=== PATIENT | female | born 1950 | race Caucasian/White ===

== ENCOUNTER 2021-03-28 16:16 | Emergency (ER) | payer MEDICARE ==
[~2021-03-28] VITALS: Ht 157.5 cm; Wt 78.5 kg
--- NOTE | 2021-03-28 16:27 | NUR ---
The patient is [id number], from home, slipped and fall right hip pain, right hip looks like has outword rolation. Rates pain 10/10. Denies numbess/tingling in the extremity. In room air and denies SOB. Respiration regular and unlabored. Attached to the monitor.
--- NOTE | 2021-03-28 16:37 | NUR ---
[facility] [phone] [facility] [phone].
[2021-03-28] MEDS ORDERED: ONDANSETRON HCL/PF 4 MG/2 ML VIAL ONE (16:50)
[2021-03-28] MEDS ORDERED: MORPHINE SULFATE INJ 4 MG/ML DISP.SYRIN ONE ×3 (16:50→21:34)
[2021-03-28] MEDS ORDERED: ONDANSETRON HCL/PF 4 MG/2 ML VIAL IVP ONE (17:00)
[2021-03-28] MEDS ORDERED: MORPHINE SULFATE INJ 2 MG/ML DISP.SYRIN IV ONE ×3 (17:00→22:00)
[2021-03-28] MEDS ORDERED: IV NS 0.9% 1,000 ML BAG IV ONE (17:00)
[2021-03-28] MEDS ORDERED: METF-442 PO (17:07)
[2021-03-28] MEDS ORDERED: FURO40TA5 PO (17:07)
[2021-03-28] MEDS ORDERED: GABA-532 PO (17:07)
[2021-03-28] MEDS ORDERED: SEMA0.25 SQ (17:07)
[2021-03-28] MEDS ORDERED: LISI2.5T2 PO (17:07)
[2021-03-28] MEDS ORDERED: METO-357 MT (17:07)
[2021-03-28] MEDS ORDERED: ROSU20TA32 PO (17:07)
[2021-03-28] MEDS ORDERED: ASPI-1169 PO (17:07)
[2021-03-28] MEDS ORDERED: INSU100V7 SQ (17:07)
--- NOTE | 2021-03-28 17:11 | NUR ---
COVID SWAB DONE AND SENT TO THE LAB
--- NOTE | 2021-03-28 17:16 | NUR ---
CALLED NURSING SUP FOR M/S BED.
[2021-03-28 17:22] LABS: BASOPHILS % (AUTO) 0.5 % (0.0-2.0); EOSINOPHILS % (AUTO) 0.9 % (0.0-6.0); HEMATOCRIT 37 % (33-45); HEMOGLOBIN 12.3 g/dL (11.5-14.8); LYMPHOCYTES % (AUTO) 14.9 % (20.0-44.0); MEAN CORPUSCULAR HGB CONC 33 g/dl (31.0-36.0); MEAN CORPUSCULAR VOLUME 85 fL (82-100); MONOCYTES # (AUTO) 0.3 K/uL (0.1-1.30); NEUTROPHILS # (AUTO) 5.5 K/uL (1.8-8.9); NEUTROPHILS % (AUTO) 78.7 % (43.0-81.0); PLATELET COUNT (AUTO) 147 K/uL (150-450); RED BLOOD CELL COUNT(AUTO) 4.35 MIL/uL (4.0-5.2)
[2021-03-28 17:30] LABS: CALCIUM, SERUM 8.8 mg/dL (8.5-10.1); CREATININE 0.6 mg/dL (0.6-1.3); POTASSIUM 4.4 mmol/L (3.5-5.1)
--- NOTE | 2021-03-28 18:00 | NUR ---
SPOKE WITH THE PATIENT`S DAUGHTER NITO AND SHE WANTS TO SPEAK WITH ADMITING DOCTOR AND SURGEON PRIOR AGREEING FOR THE SURGERY. WILL ENDORSE TO UPCOMING ER NURSE.
[2021-03-28] MEDS ORDERED: ZOLPIDEM TARTRATE 5 MG TABLET PO PRN (18:30)
[2021-03-28] MEDS ORDERED: Z GUARD REMEDY 2 OZ OINT TP PRN (18:30)
[2021-03-28] MEDS ORDERED: MORPHINE SULFATE INJ 2 MG/ML DISP.SYRIN IV PRN (18:30)
[2021-03-28] MEDS ORDERED: FUROSEMIDE 40 MG TABLET PO PRN (18:30)
[2021-03-28] MEDS ORDERED: MAG HYDROX/AL HYDROX/SIMETH 30 ML UDC PO PRN (18:30)
[2021-03-28] MEDS ORDERED: ACETAMINOPHEN 325 MG TABLET PO PRN (18:30)
[2021-03-28] MEDS ORDERED: ONDANSETRON HCL/PF 4 MG/2 ML VIAL IVP PRN (18:30)
[2021-03-28] MEDS ORDERED: MAGNESIUM HYDROXIDE 30 ML UDC PO PRN (18:30)
--- NOTE | 2021-03-28 18:31 | NUR ---
The patient awake, alert and oriented x4. Rates pain 2/10. Respiration regular and unlabored. Will continue to monitor the patient.
--- NOTE | 2021-03-28 18:35 | NUR ---
CALLED [facility] FOR CONSULT.
--- NOTE | 2021-03-28 18:38 | NUR ---
MADE PHONE CALLS TO NITO DAUGHTER [phone] [facility] [phone] HOWEVER, NO ANSWER. WILL TRY AGAIN.
--- NOTE | 2021-03-28 18:55 | NUR ---
PER ALI DAUGHTER SHE IS LOOKING FOR A BED AND MD AT [facility] FOR THE PATIENT TO GET TRANSFERED TO [facility] FOR SURGERY.
--- NOTE | 2021-03-28 19:23 | NUR ---
PRELIMINARY ECHO SHOWED EF 25-30%~. KATE ANDERSON ADVISED ON INITIAL RESULTS.
--- NOTE | 2021-03-28 20:11 | NUR ---
SPOKE WITH [facility], ACCEPTING MD IS CASSIE GILBERT (CHIEF). PT IS GOING TO [facility].
--- NOTE | 2021-03-28 21:02 | NUR ---
[facility] GAVE ETA OF 0200 FOR TRANSPORT TO [facility].
--- NOTE | 2021-03-28 21:05 | NUR ---
[facility] GAVE ETA OF 45 MINS FOR TRANSPORT TO [facility] PER [facility] DISPATCH.
--- NOTE | 2021-03-28 21:08 | NUR ---
CANCELLED [facility] TRANSPORT DUE TO [facility] BETTER ETA.
--- NOTE | 2021-03-28 21:09 | NUR ---
PT ACCEPTED TO [facility] CASSIE GILBERT GOING TO ROOM 3250 IN THE [place]. NUMBER FOR REPORT IS . CALL ([place]) WHEN TRANSPORT ARRIVES.
--- NOTE | 2021-03-28 21:13 | NUR ---
CALLED FOR REPORT, NOTED TO CALLED BACK FOR ASSIGNED NURSE.
--- NOTE | 2021-03-28 21:32 | NUR ---
NURSE VOSS WILL CALL BACK FOR REPORT.
--- NOTE | 2021-03-28 21:50 | NUR ---
REPORT GIVEN TO NURSE VOSS
[2021-03-28] MEDS ORDERED: INSULIN GLARGINE, 100 UNIT/ML CARTRIDGE SQ SCH (22:00)
--- NOTE | 2021-03-28 22:02 | NUR ---
REPROT GIVEN TO EMS AT BEDSIDE, PATIENT BEING TRANSFERRED TO [facility].
[2021-03-28 22:19] VITALS: BP 116/55
[2021-03-29] MEDS ORDERED: METFORMIN 500 MG TABLET PO SCH (09:00)
[2021-03-29] MEDS ORDERED: LISINOPRIL (5MG) 5 MG TABLET PO SCH (09:00)
[2021-03-29] MEDS ORDERED: GABAPENTIN 100 MG CAPSULE PO SCH (09:00)
[2021-03-29] MEDS ORDERED: ASPIRIN 81 MG TAB.CHEW PO SCH (09:00)
[2021-03-29] MEDS ORDERED: METOPROLOL SUCCINATE 50 MG TAB.SR.24H PO SCH (09:00)
[2021-03-29] MEDS ORDERED: ATORVASTATIN 40 MG TABLET PO SCH (18:00)
[2021-03-31] MEDS ORDERED: Medication Not On Formulary EA (Semaglutide (Ozempic) 0.5 MG) SQ SCH (18:30)
== END 2021-03-28 22:19 | disposition short-term general hospital (02) ==
LOC: ER 16:23
DX: S72.141A Displaced intertrochanteric fracture of right femur, initial encounter for closed fracture (principal); W01.0XXA Fall on same level from slipping, tripping and stumbling without subsequent striking against object, initial encounter; Y92.039 Unspecified place in apartment as the place of occurrence of the external cause; I25.10 Atherosclerotic heart disease of native coronary artery without angina pectoris; Z95.1 Presence of aortocoronary bypass graft; D69.6 Thrombocytopenia, unspecified; E11.9 Type 2 diabetes mellitus without complications; Z79.82 Long term (current) use of aspirin; Z79.4 Long term (current) use of insulin; Z20.822 Contact with and (suspected) exposure to COVID-19
CPT/HCPCS: 36415; 71045; 73502; 80048; 84484; 85025; 85730; 87081; 87426; 93005; 93307; 96361; 96374; 96375; 96376; 99285; J2270 ×3; J2405; J7030; C9803